=== PATIENT | female | born 1995 | race American Indian/Alaskan Native ===

== ENCOUNTER 2018-06-14 18:39 | Emergency (ER) | payer MEDICAID, OTHER ==
[~2018-06-14] VITALS: Ht 160 cm; Wt 64.0 kg
[~2018-06-14 18:39] MED LIST: CLIN300C85 PO; NO HOME MEDS
[2018-06-14] MEDS ORDERED: CLIN150C2 PO ×2 (21:19→21:22)
[2018-06-14] MEDS ORDERED: CLIN300C85 PO (21:19)
[2018-06-14] MEDS ORDERED: DEC4T PO ×2 (21:19→21:22)
[2018-06-14 21:48] VITALS: BP 110/49
== END 2018-06-14 21:49 | disposition home or self-care (01) ==
LOC: ER 18:40
DX: J02.9 Acute pharyngitis, unspecified (principal); F12.90 Cannabis use, unspecified, uncomplicated; F15.90 Other stimulant use, unspecified, uncomplicated; Z98.890 Other specified postprocedural states; Z79.2 Long term (current) use of antibiotics
CPT/HCPCS: 99283

== ENCOUNTER 2020-06-21 18:21 | Emergency (ER) | payer MEDICAID, OTHER ==
[~2020-06-21 18:21] MED LIST changes: +CLIN150C2 PO; -CLIN300C85 PO; +DEC4T PO
== END 2020-06-21 19:53 | disposition left against medical advice (07) ==
LOC: ER 18:22
DX: K04.7 Periapical abscess without sinus (principal); Z53.21 Procedure and treatment not carried out due to patient leaving prior to being seen by health care provider

== ENCOUNTER 2022-02-02 09:38 | Emergency (ER) | payer MEDICAID ==
[~2022-02-02] VITALS: Ht 160 cm; Wt 79.5 kg
[2022-02-02 10:07] VITALS: BP 117/65
== END 2022-02-02 10:57 | disposition home or self-care (01) ==
LOC: ER 09:38
DX: O99.611 Diseases of the digestive system complicating pregnancy, first trimester (principal); K08.89 Other specified disorders of teeth and supporting structures; O99.321 Drug use complicating pregnancy, first trimester; F12.90 Cannabis use, unspecified, uncomplicated; F15.90 Other stimulant use, unspecified, uncomplicated; Z72.89 Other problems related to lifestyle; Z3A.01 Less than 8 weeks gestation of pregnancy; Z79.2 Long term (current) use of antibiotics; Z79.899 Other long term (current) drug therapy
CPT/HCPCS: 99281

== ENCOUNTER 2022-02-26 08:09 | Emergency (ER) | payer MEDICAID ==
[~2022-02-26] VITALS: Ht 160 cm; Wt 79.5 kg
[2022-02-26 08:19] VITALS: BP 115/64
[2022-02-26 10:47] LABS: CLARITY,URINE CLEAR (Clear); COLOR,URINE YELLOW (Yellow); GLUCOSE, URINE NEGATIVE (Neg); KETONES,URINE 15 mg/dl (Neg); LEUKOCYTE ESTERASE ,URINE NEGATIVE (Neg); NITRITES, URINE NEGATIVE (Neg); OCCULT BLOOD,URINE NEGATIVE (Neg); PROTEIN,URINE NEGATIVE (Neg); UA COLLECTION TYPE NON-SPECIFIED; UROBILINOGEN,URINE 0.2 E.U/dL (0.2-1.0)
== END 2022-02-26 11:11 | disposition home or self-care (01) ==
LOC: ER 08:09
DX: O26.891 Other specified pregnancy related conditions, first trimester (principal); J09.X2 Influenza due to identified novel influenza A virus with other respiratory manifestations; Z20.822 Contact with and (suspected) exposure to COVID-19; R51.9 Headache, unspecified; F12.90 Cannabis use, unspecified, uncomplicated; F15.90 Other stimulant use, unspecified, uncomplicated; Z72.89 Other problems related to lifestyle; Z79.899 Other long term (current) drug therapy; Z3A.01 Less than 8 weeks gestation of pregnancy
CPT/HCPCS: 81003; 87502; 87503; 87635; 99283; C9803

== ENCOUNTER 2023-11-30 09:18 | Emergency (ER) | payer MEDICAID ==
[~2023-11-30] VITALS: Ht 160 cm; Wt 71.9 kg
[2023-11-30] MEDS: piperacillin/tazo 4.5gm/100ml 100 ML IV ONE (09:40)
[2023-11-30] MEDS ORDERED: vancomycin/NS 1 GM ADD-VANTAGE 250 ML IV SCH (09:45)
[2023-11-30] MEDS: normal saline 1000ml 1,000 ML IV ONE (09:46)
[2023-11-30 11:00] LABS: BASOPHILS % (AUTO) 0.3 % (0-1); EOSINOPHILS % (AUTO) 0.4 % (0-6); HEMOGLOBIN 10.9 g/dl (12.0-16.0); LYMPHOCYTES # (AUTO) 1.5 X10'3 (1.1-4.8); LYMPHOCYTES % (AUTO) 18.6 % (21-51); MEAN CORPUSCULAR HEMOGLOBIN 27.9 PG (27.0-31.0); MEAN CORPUSCULAR HGB CONC 32.9 g/dL (33.0-36.5); MEAN CORPUSCULAR VOLUME 84.7 FL (78-98); MEAN PLATELET VOLUME 8.7 FL (7.4-10.4); MONOCYTES # (AUTO) 0.7 X10'3 (0-0.9); MONOCYTES % (AUTO) 8.9 % (2-12); NEUTROPHILS # (AUTO) 5.7 X10'3 (1.8-7.7); NEUTROPHILS % (AUTO) 71.8 % (42-75); PLATELET COUNT 282 X10'3 (140-440); RED BLOOD COUNT 3.89 X10'6 (4.20-5.60); RED CELL DISTRIBUTION WIDTH 18.5 % (11.5-14.5)
[2023-11-30 11:32] LABS: ALANINE AMINOTRANSFERASE 20 U/L (12-78); ALBUMIN 2.7 G/DL (3.4-5.0); ALBUMIN/GLOBULIN RATIO 0.7 (1.1-1.5); ALKALINE PHOSPHATASE 60 IU/L (46-116); ANION GAP 11 (8-16); BILIRUBIN,DIRECT 0.1 MG/DL (0-0.3); BILIRUBIN,TOTAL 0.3 MG/DL (0.1-1.0); BLOOD UREA NITROGEN 6 MG/DL (7-18); CALCIUM 8.2 MG/DL (8.5-10.1); CHLORIDE 104 MMOL/L (99-107); GLUCOSE 100 MG/DL (70-104); MAGNESIUM 1.9 MG/DL (1.5-2.4); POTASSIUM 3.8 MMOL/L (3.5-5.1); SODIUM 141 MMOL/L (135-145); TOTAL CARBON DIOXIDE 25.7 MMOL/L (24-32); TOTAL PROTEIN 6.6 G/DL (6.4-8.2); eCRCL 141 ML/MIN; eGFR > 90 ML/MIN
[2023-11-30 11:34] LABS: BILIRUBIN,URINE NEGATIVE (Neg); CLARITY,URINE CLEAR (Clear); COLOR,URINE YELLOW (Yellow); GLUCOSE, URINE NEGATIVE (Neg); KETONES,URINE 15 mg/dl (Neg); LEUKOCYTE ESTERASE ,URINE NEGATIVE (Neg); NITRITES, URINE NEGATIVE (Neg); OCCULT BLOOD,URINE NEGATIVE (Neg); PROTEIN,URINE NEGATIVE (Neg); UROBILINOGEN,URINE 0.2 E.U/dL (0.2-1.0)
[2023-11-30 11:39] LABS: URINE HCG NEGATIVE (NEG)
[2023-11-30] MEDS ORDERED: iohexol 300mg/ml 100ml inj. ONE (11:43)
[2023-11-30 11:45] LABS: URINE AMPHETAMINE SCREEN POSITIVE (Neg); URINE BARBITUATE SCREEN NEGATIVE (Neg); URINE BENZODIAZEPINES SCREEN NEGATIVE (Neg); URINE CANNABINOID SCREEN NEGATIVE (Neg); URINE COCAINE SCREEN NEGATIVE (Neg); URINE METHADONE SCREEN POSITIVE (Neg); URINE OPIATE SCREEN NEGATIVE (Neg); URINE PHENCYCLIDINE SCREEN NEGATIVE (Neg)
[2023-11-30 11:52] LABS: ASPARTATE AMINO TRANSFERASE 16 U/L (10-37)
[2023-11-30 11:56] LABS: UA COLLECTION TYPE CLN CATCH MIDSTREAM
[2023-11-30] MEDS ORDERED: CLIN300C63 PO (13:32)
[2023-11-30] MEDS ORDERED: CEPH500C2 PO (13:32)
[2023-11-30] MEDS ORDERED: IBUP-1984 PO (13:32)
[2023-11-30] MEDS ORDERED: NALO4SPR3 (13:57)
[2023-11-30] MEDS: ibuprofen tablet 400 MG TABLET PO ONE (14:02)
[2023-11-30] MEDS: vancomycin/NS 1 GM ADD-VANTAGE 250 ML IV ONE (14:11)
[2023-11-30 15:59] VITALS: BP 118/70; PULSE 98; RESP 16; TEMP 97.8; O2SAT 98
== END 2023-11-30 16:01 | disposition home or self-care (01) ==
LOC: ER 09:19
DX: L03.211 Cellulitis of face (principal); F11.10 Opioid abuse, uncomplicated; F12.10 Cannabis abuse, uncomplicated; F15.10 Other stimulant abuse, uncomplicated; Z87.448 Personal history of other diseases of urinary system; Z79.899 Other long term (current) drug therapy
CPT/HCPCS: 36415; 70487; 80048; 80076; 80305; 81003; 81025; 83605; 83735; 84145; 85025; 87040; 93005; 96365; 96366; 96367; 99285; A6258; J2543; J3370; J3490; J7030; Q9967

== ENCOUNTER 2024-04-23 01:07 | Emergency (ER) | payer MEDICAID ==
[~2024-04-23] VITALS: Ht 160 cm; Wt 69.5 kg
[~2024-04-23 01:07] MED LIST changes: +NALO4SPR5
[2024-04-23 02:30] LABS: BASOPHILS % (AUTO) 0.1 % (0-1); EOSINOPHILS % (AUTO) 0.1 % (0-6); HEMATOCRIT 31.4 % (35.0-45.0); HEMOGLOBIN 10.4 g/dl (12.0-16.0); LYMPHOCYTES # (AUTO) 0.9 X10'3 (1.1-4.8); LYMPHOCYTES % (AUTO) 8.7 % (21-51); MEAN CORPUSCULAR HEMOGLOBIN 28.5 PG (27.0-31.0); MEAN CORPUSCULAR HGB CONC 33.3 g/dL (33.0-36.5); MEAN CORPUSCULAR VOLUME 85.6 FL (78-98); MEAN PLATELET VOLUME 8.4 FL (7.4-10.4); MONOCYTES # (AUTO) 1.3 X10'3 (0-0.9); MONOCYTES % (AUTO) 12.6 % (2-12); NEUTROPHILS # (AUTO) 8.2 X10'3 (1.8-7.7); NEUTROPHILS % (AUTO) 78.5 % (42-75); PLATELET COUNT 251 X10'3 (140-440); RED BLOOD COUNT 3.67 X10'6 (4.20-5.60); RED CELL DISTRIBUTION WIDTH 15.1 % (11.5-14.5); WHITE BLOOD COUNT 10.4 X10'3 (4.5-11.0)
[2024-04-23] MEDS: bisacodyl 5mg tablet.DR PO ONE (02:37)
[2024-04-23] MEDS: ondansetron/PF 4mg/2ml inj IV ONE (02:37)
[2024-04-23] MEDS: normal saline 1000ml 1,000 ML IV ONE ×2 (02:37→04:08)
[2024-04-23] MEDS: ketorolac trometh 30MG/ML vial 30 MG/ML VIAL IV ONE (02:38)
[2024-04-23 02:42] LABS: ALANINE AMINOTRANSFERASE 27 U/L (12-78); ALBUMIN/GLOBULIN RATIO 0.7 (1.1-1.5); ALKALINE PHOSPHATASE 75 IU/L (46-116); ANION GAP 6 (8-16); ASPARTATE AMINO TRANSFERASE 24 U/L (10-37); BILIRUBIN,TOTAL 0.5 MG/DL (0.1-1.0); BLOOD UREA NITROGEN 8 MG/DL (7-18); CALCIUM 8.7 MG/DL (8.5-10.1); CHLORIDE 98 MMOL/L (99-107); GLUCOSE 97 MG/DL (70-104); LIPASE 10 U/L (16-77); POTASSIUM 3.8 MMOL/L (3.5-5.1); SODIUM 131 MMOL/L (135-145); TOTAL CARBON DIOXIDE 27.1 MMOL/L (24-32); TOTAL PROTEIN 7.1 G/DL (6.4-8.2); eCRCL 88 ML/MIN; eGFR 87 ML/MIN
[2024-04-23] MEDS: furosemide 10 MG/1 ML 10ml inj IV ONE (03:55)
[2024-04-23 06:01] LABS: BILIRUBIN,URINE NEGATIVE (Neg); CLARITY,URINE CLOUDY (Clear); COLOR,URINE YELLOW (Yellow); GLUCOSE, URINE NEGATIVE (Neg); KETONES,URINE 40 mg/dl (Neg); LEUKOCYTE ESTERASE ,URINE LARGE (Neg); NITRITES, URINE POSITIVE (Neg); OCCULT BLOOD,URINE SMALL (Neg); PH,URINE 6.5 (4.8-8.0); PROTEIN,URINE 30 mg/dl (Neg)
[2024-04-23 06:02] LABS: URINE HCG NEGATIVE (NEG)
[2024-04-23 06:03] LABS: URINE AMPHETAMINE SCREEN POSITIVE (Neg); URINE BARBITUATE SCREEN NEGATIVE (Neg); URINE BENZODIAZEPINES SCREEN NEGATIVE (Neg); URINE CANNABINOID SCREEN NEGATIVE (Neg); URINE COCAINE SCREEN NEGATIVE (Neg); URINE METHADONE SCREEN NEGATIVE (Neg); URINE OPIATE SCREEN POSITIVE (Neg); URINE PHENCYCLIDINE SCREEN NEGATIVE (Neg)
[2024-04-23 06:08] LABS: UA COLLECTION TYPE CLN CATCH MIDSTREAM
[2024-04-23 06:09] LABS: BACTERIA,URINE 4+ /HPF (Neg); SQUAMOUS EPITHELIAL CELL,UR MODERATE /LPF (FEW); TRANSITIONAL EPI CELLS,URINE FEW /HPF; WBC,URINE TNTC /HPF (0-4)
[2024-04-23] MEDS ORDERED: CEPH-585 PO (06:16)
[2024-04-23] MEDS: CefTRIAXone/D5W-Rocephin 1gm 50 ML IV ONE (07:03)
[2024-04-23 07:58] VITALS: BP 118/71; PULSE 102; RESP 16; TEMP 98.1; O2SAT 97
== END 2024-04-23 08:00 | disposition home or self-care (01) ==
LOC: ER 01:07
DX: R10.84 Generalized abdominal pain (principal); N39.0 Urinary tract infection, site not specified; F12.90 Cannabis use, unspecified, uncomplicated; F15.90 Other stimulant use, unspecified, uncomplicated; Z79.2 Long term (current) use of antibiotics; Z79.899 Other long term (current) drug therapy; Z72.89 Other problems related to lifestyle
CPT/HCPCS: 36415; 80053; 80305; 81001; 81025; 83690; 84145; 85025; 87077; 87088; 87186; 96361; 96365; 96375; 99285; J0696; J1885; J2405; J7030

== ENCOUNTER 2024-09-09 15:51 | Emergency (ER) | payer MEDICAID ==
[~2024-09-09] VITALS: Ht 160 cm; Wt 60.5 kg
[~2024-09-09 15:51] MED LIST changes: +NALO4SPR22; -NALO4SPR5
[2024-09-09 17:33] LABS: BASOPHILS % (AUTO) 0.3 % (0-1); HEMOGLOBIN 10.4 g/dl (12.0-16.0); MONOCYTES # (AUTO) 0.9 X10'3 (0-0.9)
[2024-09-09 17:34] LABS: EOSINOPHILS # (AUTO) 0.1 X10'3 (0-0.9); EOSINOPHILS % (AUTO) 0.8 % (0-6); HEMATOCRIT 31.3 % (35.0-45.0); LYMPHOCYTES # (AUTO) 1.6 X10'3 (1.1-4.8); LYMPHOCYTES % (AUTO) 10.5 % (21-51); MEAN CORPUSCULAR HEMOGLOBIN 28.4 PG (27.0-31.0); MEAN CORPUSCULAR HGB CONC 33.2 g/dL (33.0-36.5); MEAN CORPUSCULAR VOLUME 85.6 FL (78-98); NEUTROPHILS # (AUTO) 12.2 X10'3 (1.8-7.7); NEUTROPHILS % (AUTO) 82.4 % (42-75); PLATELET COUNT 688 X10'3 (140-440); RED BLOOD COUNT 3.65 X10'6 (4.20-5.60); RED CELL DISTRIBUTION WIDTH 16.6 % (11.5-14.5); WHITE BLOOD COUNT 14.9 X10'3 (4.5-11.0)
[2024-09-09 17:44] LABS: ALBUMIN 3.1 G/DL (3.4-5.0); ANION GAP 8 (8-16); BLOOD UREA NITROGEN 14 MG/DL (7-18); BUN/CREATININE RATIO 19.2 (10.0-20.0); CALCIUM 9.3 MG/DL (8.5-10.1); CHLORIDE 102 MMOL/L (99-107); CREATININE 0.73 MG/DL (0.40-0.90); GLUCOSE 152 MG/DL (70-104); POTASSIUM 4.1 MMOL/L (3.5-5.1); SODIUM 139 MMOL/L (135-145); TOTAL CARBON DIOXIDE 29.2 MMOL/L (24-32); eCRCL 97 ML/MIN; eGFR > 90 ML/MIN
[2024-09-09] MEDS: piperacillin/tazo 4.5gm/100ml 100 ML IV SCH (18:10)
[2024-09-09] MEDS ORDERED: piperacillin/tazo 4.5gm/100ml 100 ML IV SCH (18:14)
[2024-09-09] MEDS: LIDOcaine 1% W/epiNEPHrine 1:100,000 20ml vial SQ ONE (18:25)
[2024-09-09] MEDS ORDERED: DOXY-460 PO (19:06)
[2024-09-09] MEDS: DOXYCYCLINE 100MG CAPSULE PO STA (19:19)
[2024-09-09 19:21] VITALS: BP 110/70; PULSE 87; RESP 14; TEMP 98.9; O2SAT 100
[2024-09-09] MEDS: normal saline 1000ML IV soln IVB ONE (19:42)
== END 2024-09-09 19:44 | disposition home or self-care (01) ==
LOC: ER 15:52
DX: L02.01 Cutaneous abscess of face (principal); F15.90 Other stimulant use, unspecified, uncomplicated; F12.90 Cannabis use, unspecified, uncomplicated
CPT/HCPCS: 10060; 36415; 80048; 83605; 84145; 85025; 87040; 99283; J7030; A6449

== ENCOUNTER 2024-09-11 17:26 | Emergency (ER) | payer MEDICAID ==
[~2024-09-11] VITALS: Ht 160 cm; Wt 59.7 kg
[~2024-09-11 17:26] MED LIST changes: +DOXY-460 PO
[2024-09-11 18:32] VITALS: BP 112/79; PULSE 97; RESP 14; TEMP 97.6; O2SAT 99
== END 2024-09-11 21:05 | disposition home or self-care (01) ==
LOC: ER 17:26
DX: L02.01 Cutaneous abscess of face (principal); F15.90 Other stimulant use, unspecified, uncomplicated; F12.90 Cannabis use, unspecified, uncomplicated; Z79.2 Long term (current) use of antibiotics; Z87.440 Personal history of urinary (tract) infections; Z59.00 Homelessness unspecified
CPT/HCPCS: 99282

== ENCOUNTER 2025-08-17 11:28 | Emergency (ER) | payer MEDICAID ==
[~2025-08-17] VITALS: Ht 160 cm; Wt 78.4 kg
[~2025-08-17 11:28] MED LIST changes: -DOXY-460 PO
[2025-08-17 11:30] VITALS: BP 134/83; PULSE 132; RESP 12; O2SAT 99
[2025-08-17 12:13] LABS: URINE HCG POSITIVE (NEG)
--- NOTE | 2025-08-17 13:19 | Physician Documentation ---
History of Present Illness ~ General Chief Complaint: See Chief Complaint Stated Complaint: TEST Time Seen by MD: 13:13 Primary Medical Doctor: none History of Present Illness Initial Comments He is having year old female presents to the ED requesting a test to confirm positive Medication Reconciliation Allergies: Coded Allergies: No Known Allergies (Unverified , 08/17/25) Scheduled Clindamycin (Cleocin ), 3 CAP PO Q8H Dexamethasone* (Decadron*), 2 TAB PO ONCE Naloxone HCl (Naloxone HCl), 1 SPRAYS NA ONCE Miscellaneous Medications Home Med List (No Home Medications), (Reported) Past Medical History Past Medical History: UTI Past Surgical History: other Other Past Surgical History: drained swollen gland Last Menstrual Period: Jul 30, 2025 Alcohol Use: Occasionally Drug Use: marijuana, methamphetamine Lives In: Home Occupation: student Review of Systems All Other Systems at this time: Reviewed and Negative ROS As stated above in the HPI, otherwise all systems are reviewed and negative. Physical Exam Physical Exam Vital Signs: Temperature: 98.2, Source: Temporal, Heart Rate: 132, Respiratory Rate: 12, BP: 134/83, Pulse Oximetry: 99, Weight: 78.400 Oxygen Flow Rate: 0 Physical Exam General: Alert, no apparent distress. Respiratory: Lungs clear, no respiratory distress. Chest: No accessory muscle use. Cardiovascular: Regular rate and rhythm, no murmurs. Extremities: Normal range of motion, no deformity. Neurologic: Oriented x4. Psychiatric: Normal mood and affect. Skin: Normal color, warm and dry. No edema, no ecchymosis. Progress Results/Orders Results/Orders Vital Signs 08/17/25 08/17/25 11:30 13:36 Temp 98.2 98.2 Pulse 132 Resp 12 B/P (MAP) 134/83 Pulse Ox 99 O2 Flow Rate 0 Laboratory Tests Test 08/17/25 11:55 Urine HCG, Qualitative Positive Medical Decision Making Additional information obtaine: old records Findings Patient came back with a positive HCG patient was advised discharge Differential Diagnosis k Departure Disposition: 01 HOME / SELF CARE / HOMELESS Impression: Primary Impression: Condition: Improved Discharge Instructions: ABCs of Referrals: NO PRIMARY CARE PROVIDER (PCP) Signature Scribe Signature: o Attestation: Scribed for Alexx Butterfield Hostel Manager by Alexx Moeller NP . 12/1/25 18:20 ALEXX BUTTERFIELD NP Aug 17, 2025 13:19
[2025-08-17 13:36] VITALS: TEMP 98.2
== END 2025-08-17 13:37 | disposition home or self-care (01) ==
LOC: ER 11:29
DX: Z32.01 Encounter for pregnancy test, result positive (principal); F12.90 Cannabis use, unspecified, uncomplicated; F15.90 Other stimulant use, unspecified, uncomplicated; Z87.440 Personal history of urinary (tract) infections; Z79.899 Other long term (current) drug therapy; Z72.89 Other problems related to lifestyle
CPT/HCPCS: 81025; 99283